=== PATIENT | female | born 1960 | race Caucasian/White ===

== ENCOUNTER 2016-10-18 09:01 | Outpatient (CLI) | payer OTHER | END 2016-10-18 09:02 | LOC: NAVSJIPCSP 09:01 | PROVIDERS: ATTEND Internal Medicine | DX: E78.5 Hyperlipidemia, unspecified (principal) | CPT/HCPCS: 36415; 80061 ==

== ENCOUNTER 2017-02-14 10:22 | Outpatient (CLI) | payer OTHER | END 2017-02-14 10:23 | LOC: NAVSJIPCSP 10:22 | PROVIDERS: ATTEND Internal Medicine | DX: E78.5 Hyperlipidemia, unspecified (principal); I11.9 Hypertensive heart disease without heart failure | CPT/HCPCS: 36415; 80061 ==

== ENCOUNTER 2018-06-13 09:38 | Outpatient (CLI) | payer OTHER ==
--- NOTE | 2018-06-13 10:40 | RAD ---
PA AND LATERAL CHEST: History: Shortness of breath, dyspnea on exertion. FINDINGS: Comparison made with portable exam of 01-28-11. The heart size is borderline. The aorta is tortuous. The lungs are well expanded without lobar consol idation, pneumothoraces, kaylie pulmonary edema or pleural effusions. There are degenerative changes i n the spine. IMPRESSION: No radiographic evidence of acute cardiopulmonary process. POS: [facility]
== END 2018-06-13 09:39 | disposition home or self-care (01) ==
LOC: NAV RAD 09:38
PROVIDERS: ATTEND Internal Medicine
DX: R06.09 Other forms of dyspnea (principal)
CPT/HCPCS: 71046